=== PATIENT | female | born 1995 | race Hispanic/Latino ===

== ENCOUNTER 2022-07-07 12:57 | Emergency (ER) | payer OTHER ==
[2022-07-07 13:44] LABS: Urine Blood 3+ (Negative); Urine Glucose Negative (Negative); Urine Protein 3+ (Negative); Urine pH >=9.0 (5.0-7.0)
[2022-07-07 13:49] LABS: Absolute Lymphocytes (CBC) 1.8 K/uL (0.7-4.9); Hematocrit 42.2 % (36.0-45.0); Lymphocytes % 18.1 % (15.3-44.8); MCV 88.8 fL (80-100); MPV 11.2 fL (7.6-11.3); RBC Red Blood Cell Count 4.76 M/uL (3.86-4.86)
[2022-07-07 14:08] LABS: Potassium 3.6 mmol/L (3.5-5.1)
--- NOTE | 2022-07-07 14:49 | RAD REPORT ---
EXAM DESCRIPTION: US - Transvaginal OB - 07/07/2022 2:39 pm CLINICAL HISTORY: pelvic pain, vaginal bleeding COMPARISON: No comparisons FINDINGS: A 9 x 5 mm oval irregularly-shaped cystic mass or hypoechoic sac is present in the fundal portion of the endometrial cavity. There is echogenic material present within this sac possibly yolk sac. There is no clearly defined pole. Size of this possible gestational sac is below 6 weeks i n age. No surrounding hematoma or mass. Endometrium and myometrium are otherwise normal. Uterine size is normal. No blood or fluid in the cul de sac. Both ovaries are identified with normal blood flow in the stroma. No adnexal mass to suspect ectopic . IMPRESSION: Suspected five week sized gestational sac in the fundal portion of the endometrial canal . No intrauterine hematoma or mass. No pole is confirmed. Findings may simply reflect a very early IUP. Follow-up sonography can be performed if serial beta HCG values indicate ongoing .
--- NOTE | 2022-07-07 15:10 | ER ---
Nurse's Notes [facility] Name: Tiffany Webster Age: 27 yrs Sex: Female : 1995 Arrival Date: 07/07/2022 Time: 12:59 Bed Waiting Private MD: Diagnosis: Threatened ;UTI/ Urinary tract infection, site not specified Presentation: 07/07 13:13 Chief complaint: Patient states: I think I am 7 weeks - Lower abdominal ld1 cramping and bleeding began this morning. Coronavirus screen: At this time, the client does not indicate any symptoms associated with coronavirus-19. Ebola Screen: No symptoms or risks identified at this time. Initial Sepsis Screen: Does the patient meet any 2 criteria? No. Patient's initial sepsis screen is negative. Does the patient have a suspected source of infection? No. Patient's initial sepsis screen is negative. Risk Assessment: Do you want to hurt yourself or someone else? Patient reports no desire to harm self or others. Onset of symptoms was July 07, 2022 at 13:14. 13:13 Method Of Arrival: Ambulatory ld1 13:13 Acuity: ELMA 3 ld1 Triage Assessment: 13:14 General: Appears in no apparent distress. comfortable, Behavior is calm, cooperative, ld1 appropriate for age. Pain: Complains of pain in suprapubic area, right lower quadrant and left lower quadrant Pain does not radiate. Pain currently is 7 out of 10 on a pain scale. Quality of pain is described as throbbing. EENT: No signs and/or symptoms were reported regarding the EENT system. Neuro: Level of Consciousness is awake, alert, obeys commands, Oriented to person, place, time, situation. Cardiovascular: Capillary refill < 3 seconds Patient's skin is warm and dry. Respiratory: Airway is patent Respiratory effort is even, unlabored. GI: Abdomen is round non-distended. : Reports vaginal bleeding that is with clots. Derm: No signs and/or symptoms reported regarding the dermatologic system. Musculoskeletal: No signs and/or symptoms reported regarding the musculoskeletal system. 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 - Social history:: Smoking status: Patient denies any tobacco usage or history of. Patient/guardian denies using alcohol. Screenin:01 Abuse screen: Denies threats or abuse. Denies injuries from another. Nutritional ld1 screening: No deficits noted. Tuberculosis screening: No symptoms or risk factors identified. Fall Risk None identified. Assessment: 16:01 Reassessment: Patient appears in no apparent distress at this time. See triage ld1 assessment. Vital Signs: 13:13 BP 124 / 65; Pulse 95; Resp 18; Temp 97.9(O); Pulse Ox 100% on R/A; Weight 93.44 kg; ld1 Height 5 ft. 2 in. (157.48 cm); Pain 5/10; 13:13 Body Mass Index 37.68 (93.44 kg, 157.48 cm) ld1 ED Course: 12:59 Patient arrived in ED. rg4 13:00 Lenny Estevez PA is PHCP. jac 13:00 Quinton Rubin DO is Attending Physician. [facility] 13:14 Triage completed. ld1 13:14 Arm band placed on right wrist. ld1 13:45 Felipa Pickett, RN is Primary Nurse. eh3 13:45 Inserted saline lock: 20 gauge in left antecubital area, using aseptic technique. Blood eh3 collected. 13:49 Abo/rh Typing Sent. eh3 13:49 Basic Metabolic Panel Sent. eh3 13:49 CBC with Diff Sent. eh3 13:49 Quantitative Hcg Sent. eh3 14:32 Transvaginal OB In Process Unspecified. EDMS 16:01 Patient has correct armband on for positive identification. Placed in gown. Bed in low ld1 position. Call light in reach. Side rails up X2. Pulse ox on. NIBP on. 16:01 No provider procedures requiring assistance completed. IV discontinued, intact, ld1 bleeding controlled, No redness/swelling at site. Administered Medications: No medications were administered Medication: 16:01 VIS not applicable for this client. ld1 Outcome: 15:09 Discharge ordered by . miguelito 16:01 Discharged to home ambulatory. ld1 16:01 Condition: stable 16:01 Discharge instructions given to patient, Instructed on discharge instructions, follow up and referral plans. Demonstrated understanding of instructions, follow-up care, medications, Prescriptions given X 1. 16:01 Patient left the ED. ld1 Signatures: Dispatcher [employer] EDMS Lenny Estevez PA PA jmm Garcia, Rubi rg4 Geraldine Lemons RN RN ld1 Felipa Pickett RN RN eh3 Corrections: (The following items were deleted from the chart) 13:14 13:13 BP 124 / 65; Pulse 95bpm; Resp 18bpm; Pulse Ox 100% RA; ld1 ld1
--- NOTE | 2022-07-07 15:10 | EDPHYS ---
Physician Documentation [facility] Name: Tiffany Webster Age: 27 yrs Sex: Female : 1995 Arrival Date: 07/07/2022 Time: 12:59 Bed Waiting Private MD: ED Physician Quinton Rubin HPI: 07/07 15:05 This 27 yrs old Female presents to ER via Ambulatory with complaints of jmm Vaginal Bleeding, + Preg <12wks. 15:05 The patient presents to the emergency department with vaginal bleeding. The estimated jmm gestational age is 7 weeks. The patient has not experienced similar symptoms in the past. This is a 27-year-old G4, P3 the presents emerged part with complaints of pelvic cramping and vaginal bleeding beginning earlier today. Patient denies dysuria, vomiting.. 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 - Social history:: Smoking status: Patient denies any tobacco usage or history of. Patient/guardian denies using alcohol. ROS: 15:05 Constitutional: Negative for fever, chills, and weight loss, Cardiovascular: Negative jmm for chest pain, palpitations, and edema, Respiratory: Negative for shortness of breath, cough, wheezing, and pleuritic chest pain. 15:05 : Positive for vaginal bleeding. 15:05 All other systems are negative. Exam: 15:05 Constitutional: This is a well developed, well nourished patient who is awake, alert, jmm and in no acute distress. Head/Face: atraumatic. Eyes: EOMI, no conjunctival erythema appreciated ENT: Moist Mucus Membranes Neck: Trachea midline, Supple Chest/axilla: Normal chest wall appearance and motion. Cardiovascular: Regular rate and rhythm. No edema appreciated Respiratory: Normal respirations, no respiratory distress appreciated 15:05 Skin: General appearance color normal MS/ Extremity: Moves all extremities, no obvious deformities appreciated, no edema noted to the lower extremities Neuro: Awake and alert Psych: Behavior is normal, Mood is normal, Patient is cooperative and pleasant 15:05 Abdomen/GI: Inspection: abdomen appears normal, Bowel sounds: normal, Palpation: soft, mild abdominal tenderness, in the suprapubic area. Vital Signs: 13:13 BP 124 / 65; Pulse 95; Resp 18; Temp 97.9(O); Pulse Ox 100% on R/A; Weight 93.44 kg; ld1 Height 5 ft. 2 in. (157.48 cm); Pain 5/10; 13:13 Body Mass Index 37.68 (93.44 kg, 157.48 cm) ld1 MDM: 13:17 Patient medically screened. [facility] 15:06 Data reviewed: vital signs, nurses notes. Counseling: I had a detailed discussion with miguelito the patient and/or guardian regarding: the historical points, exam findings, and any diagnostic results supporting the discharge/admit diagnosis, lab results, radiology results, the need for outpatient follow up, to return to the emergency department if symptoms worsen or persist or if there are any questions or concerns that arise at home. ED course: Patient is alert and nontoxic in appearance in the ED. Urine did reveal signs of asymptomatic bacteriuria. Will treat with oral antibiotics. Patient advised to follow-up with COMPUTER REPAIRER for repeat quant hCG in 2 days. Patient otherwise given strict return precautions. Patient understood and agrees plan of care.. 07/07 13:09 Order name: Abo/rh Typing; Complete Time: 15:04 [facility] 07/07 13:09 Order name: Basic Metabolic Panel; Complete Time: 14:22 [facility] 07/07 13:09 Order name: CBC with Diff; Complete Time: 14:22 [facility] 07/07 13:09 Order name: Quantitative Hcg; Complete Time: 14:22 [facility] 07/07 13:45 Order name: Urine Dipstick-Ancillary; Complete Time: 14:22 [facility] 07/07 13:48 Order name: Urine --Ancillary (enter results); Complete Time: 14:22 07/07 13:09 Order name: IV Saline Lock; Complete Time: 13:45 [facility] 07/07 13:09 Order name: Labs collected and sent; Complete Time: 13:45 [facility] 07/07 13:09 Order name: NPO; Complete Time: 13:22 [facility] 07/07 13:09 Order name: Urine Dipstick-Ancillary (obtain specimen); Complete Time: 13:45 [facility] 07/07 13:17 Order name: Urine Test (obtain specimen); Complete Time: 13:45 1 07/07 14:32 Order name: Transvaginal OB; Complete Time: 15:04 EDMS Administered Medications: No medications were administered Disposition: 16:34 Co-signature as Attending Physician, Quinton Rubin DO I agree with the assessment and ms3 plan of care. Disposition Summary: 07/07/22 15:09 Discharge Ordered Location: Home [facility] Condition: Stable jm Diagnosis - Threatened jmm - UTI/ Urinary tract infection, site not specified [facility] Followup: [facility] - With: Private Physician - When: 2 - 3 days - Reason: Recheck today's complaints, Continuance of care, Re-evaluation by your physician Discharge Instructions: - Discharge Summary Sheet jm - Threatened Miscarriage jmm - and Urinary Tract Infection [facility] Forms: - Medication Reconciliation Form [facility] - Thank You Letter [facility] - Antibiotic Education [facility] - Prescription Opioid Use [facility] Prescriptions: - Cephalexin 500 mg Oral Capsule - take 1 capsule by ORAL route every 8 hours for 10 days; 30 capsule; Refills: 0, [facility] Product Selection Permitted Signatures: Dispatcher [employer] EDMS Lenny Estevez PA PA jmm Sims, Marcus, DO DO ms3 Geraldine Lemons, RN RN ld1 Corrections: (The following items were deleted from the chart) 14:32 13:10 1st Trimest Single 1st Fetus+US.RAD.BRZ ordered. EDSD EDMS
[2022-07-07 17:18] VITALS: BP 124/65; TEMP 97.9; O2SAT 100
== END 2022-07-07 16:01 | disposition home or self-care (01) ==
LOC: ER 12:57
DX: O20.0 Threatened abortion (principal); O23.41 Unspecified infection of urinary tract in pregnancy, first trimester; N39.0 Urinary tract infection, site not specified; Z3A.01 Less than 8 weeks gestation of pregnancy
CPT/HCPCS: 36415; 76817; 80048; 81003; 81025; 84702; 85025; 86900; 86901; 99284